=== PATIENT | female | born 1945 | race Caucasian/White ===

== ENCOUNTER 2019-08-25 12:58 | Day surgery (SDC) | payer OTHER, SELFPAY ==
[2019-08-25] VITALS (8 sets, daily range): BP systolic 95–146; BP diastolic 56–85; PULSE 49–71; RESP 10–17; TEMP 36.2–37; O2SAT 94–99; BMI 29.6
--- NOTE | 2019-08-25 | PATH_ITS ---
[facility] Accession Number: [id number] . 01 Material submitted: . PART A: colon - RANDOM COLON BIOPSIES PART B: colon - TRANSVERSE POLYP . 02 Diagnosis: A. Random Colon, Biopsies: Colonic mucosa with no diagnostic abnormality. Negative for active, chronic and microscopic colitis. Negative for dysplasia and malignancy. . B. Transverse Colon, Polyp, Biopsy: Favor inflammatory polyp. Negative for dysplasia and malignancy. V 08/26/2019 1303 Local . 02 Electronically signed: . Christina Baez MD, Pathologist NPI- [id number] . 01 Gross description: . Part A: RANDOM COLON BIOPSIES: Received in formalin are multiple fragment(s) of lambert, soft tissue measuring 0.1 x 0.1 x 0.1 cm to 0.3 x 0.1 x 0.1 cm submitted entirely in 1 cassette(s) Part B: TRANSVERSE POLYP: Received in formalin is 1 fragment(s) of lambert, soft tissue measuring 0.3 x 0.2 x 0.1 cm submitted entirely in 1 cassette(s) /[facility] [place] 08/25/2019 2234 Local . 02 Pathologist provided ICD-10: R19.7 . 02 CPT . 718635, [id number] Performed at: 01 [facility] [address], [place], [place] [id number] MD Ismael Narvaez MD Phone: [phone] Performed at: 02 [facility] [address] [place], [place] [id number] MD Christina Baez MD Phone: [phone]
[2019-08-25] MEDS: SODIUM CHLORIDE 0.9% 1,000 ML 21 ML IV (13:38)
--- NOTE | 2019-08-25 13:56 | PM.PREOP ---
Pre-operative Note Interval Note History & Physical reviewed/Exam performed by Physician: Yes Changes to H&P: No ASA Class (for procedural sedation): II
--- NOTE | 2019-08-25 13:57 | PM.OP.ENDO ---
Operative Date/Time/Diagnoses Date of procedure: 08/25/19 Time of procedure: 13:57 Pre-op diagnosis: See indication and findings Procedure & Clinicians Study performed: Colonoscopy Indications: Abdominal pain and bloody diarrhea Surgeon: Sandra Moss Procedure Notes Procedure in detail: After informed consent was obtained the patient was placed in left lateral decubitus position. The video colonoscope was introduced the rectum slowly advanced to the anastomosis. On slow withdrawal mucosa was carefully examined. The scope was removed. The patient tolerated procedure well. Blood loss none Complications none Sedation Total sedation time 22 minutes Versed 8 mg fentanyl 150 micro g IV titration Findings 1. Extensive large and small a diverticulosis of the sigmoid and left colon otherwise scattered and smaller 2. Small 3 mm polyp in the transverse colon cold biopsy removed completely 3. Random biopsies taken in the colon because of chronic loose stools 4. Ileocolonic anastomosis at the hepatic flexure. Will follow up on biopsies. If polyp is adenomatous she will need recall in 5 years.
[2019-08-25] MEDS: MIDAZOLAM 5 MG/5 ML VIAL IV (14:46)
[2019-08-25] MEDS: fentaNYL 250 MCG/5 ML INJ IV (14:47)
== END 2019-08-25 16:20 | disposition home or self-care (01) ==
PROVIDERS: Family Provider Physician Assistant Medical; PCP Physician Assistant Medical; Visit Provider Internal Medicine Gastroenterology
PROC: 0DJD8ZZ Inspection of Lower Intestinal Tract, Via Natural or Artificial Opening Endoscopic (ICD-10-PCS; CPT 45378; principal; 2019-08-25 14:30)
DX: R10.9 Unspecified abdominal pain (principal); K92.1 Melena; I10 Essential (primary) hypertension; K57.30 Diverticulosis of large intestine without perforation or abscess without bleeding; K63.5 Polyp of colon
CPT/HCPCS: 45380; J2250; J3010